=== PATIENT | female | born 1965 ===

== ENCOUNTER 2018-11-05 07:30 | Day surgery (SDC) | payer BC ==
[2018-11-05 08:35] VITALS: TEMP 98; O2SAT 100
[2018-11-05] MEDS ORDERED: Lactated Ringer's 500 ML IV ONE (10:09)
[2018-11-05] MEDS ORDERED: Propofol 10 mg/ml Inj (20 ML) ONE ×2 (10:11)
[2018-11-05] MEDS ORDERED: Midazolam 2 MG/2 ML VIAL ONE (10:11)
[2018-11-05] MEDS ORDERED: Lidocaine Hydrochloride 5 ML INJ ONE (10:12)
[2018-11-05] MEDS ORDERED: Lactated Ringer's 500 ML IV SCH (10:30)
[2018-11-05 14:38] VITALS: BP 134/75; PULSE 70; RESP 18
== END 2018-11-05 12:30 | disposition home or self-care (01) ==
LOC: C.ENDO 07:30
PROVIDERS: ATTEND Internal Medicine Gastroenterology
DX: R10.13 Epigastric pain (principal); Z12.11 Encounter for screening for malignant neoplasm of colon; K29.70 Gastritis, unspecified, without bleeding; D12.5 Benign neoplasm of sigmoid colon; K64.8 Other hemorrhoids
CPT/HCPCS: 43239; 45385; 88305; J2250; J2704; J7120